=== PATIENT | female | born 1935 | race Caucasian/White ===

== ENCOUNTER 2016-09-11 14:17 | Outpatient (CLI) | payer MEDICARE, OTHER ==
--- NOTE | 2016-09-12 07:50 | RAD ---
FOUR VIEWS OF THE RIGHT KNEE: Date: 09-11-16 Comparison: None. History: Right knee pain, arthritis. FINDINGS: Mild medial and lateral compartment narrowing. No significant knee joint effusion. No fracture or dislocation. IMPRESSION: Mild joint space narrowing with no acute osseous abnormality seen. POS: [facility]
--- NOTE | 2016-09-12 07:50 | RAD ---
AP BILATERAL KNEES: Date: 09/11/16 FINDINGS: AP upright views of both knees obtained. Medial and lateral joint spaces are maintained and appear symmetric. No significant degenerative yazmin nge seen. No fracture or acute abnormality. IMPRESSION: Unremarkable AP weightbearing views of both knees. POS: [facility]
== END 2016-09-11 14:18 | disposition home or self-care (01) ==
LOC: NAV RAD 14:17
PROVIDERS: ATTEND Family Medicine
DX: M17.0 Bilateral primary osteoarthritis of knee (principal)
CPT/HCPCS: 73565

== ENCOUNTER 2016-10-12 08:40 | Outpatient (CLI) | payer MEDICARE, OTHER ==
[2016-10-12 12:45] LABS: #Eosinphils 0.1 thou/uL (0.0-0.7); #Lymphocytes 1.7 thou/uL (1.20-3.40); #Monocytes 0.6 thou/uL (0.11-0.59); #Neutrophils 2.5 thou/uL (1.40-6.50); %Basophils 0.9 % (0.0-1.0); %Eosinophils 2.3 % (0.0-10.0); %Lymphocytes 34.8 % (21.0-51.0); %Monocytes 11.3 % (0.0-10.0); %Neutrophils 50.7 % (42.0-75.0); Hemoglobin 13.6 g/dL (12.0-16.0); Mean Corpuscular HGB CONC 33.5 g/dL (32.0-36.0); Mean Corpuscular Hemoglobin 31.8 pg (27.0-31.0); Mean Corpuscular Volume 95.1 fl (81.0-99.0); Mean Platelet Volume 7.6 fL (7.4-10.4); Platelet Count 286 thou/uL (130-400); RBC Distribution Width 12.5 % (11.5-14.5); Red Blood Cell (RBC) Count 4.27 mill/uL (4.20-5.40); White Blood Cell (WBC) Count 4.9 thou/uL (4.8-10.8)
[2016-10-12 12:51] LABS: Hemoglobin A1c 5.6 % (4.0-6.0)
[2016-10-12 13:09] LABS: ALT (SGPT) 24 U/L (0-55); AST (SGOT) 23 U/L (5-34); Albumin 4.3 g/dL (3.4-4.8); Alkaline Phosphatase 85 U/L (40-150); Anion Gap 16 mmol/L (10-20); BUN (Urea Nitrogen) 25 mg/dL (9.8-20.1); Bilirubin, Total 0.4 mg/dL (0.2-1.2); Calc. Creatinine Clearance 0 mL/min (70-130); Calcium 9.3 mg/dL (7.8-10.44); Carbon Dioxide 26 mmol/L (23-31); Cardiac Risk 2.7 (Less than 4.5); Chloride 102 mmol/L (98-107); Cholesterol 178 mg/dL (< 200 Desired); Estimated GFR-MDRD 73; Globulin 2.3 g/dL (2.4-3.5); Glucose 96 mg/dL (83-110); HDL Cholesterol 67 mg/dL (>60 Neg Risk); LDL Cholesterol, Calculated 97 mg/dL; Potassium 4.6 mmol/L (3.5-5.1); Protein, Total 6.6 g/dL (5.8-8.1); Sodium 139 mmol/L (136-145); Triglycerides 72 mg/dL (Less than 150)
[2016-10-12 13:37] LABS: Bilirubin Negative (Negative); Blood, Urine Negative (Negative); Clarity Clear (Clear); Glucose, Urine (Dipstick) Negative (Negative); Leukocyte Trace (Negative); Nitrite Negative (Negative); Protein, Urine (Dipstick) Negative (Neg-Trace); Specific Gravity, Urine 1.015 (1.005-1.030); Urobilinogen 0.2 mg/dL (0.2-1.0)
[2016-10-12 13:54] LABS: Bacteria/HPF Rare-Few HPF (None Seen); RBC/HPF None Seen HPF (0-3); WBC/HPF 0-3 HPF (0-3)
[2016-10-12 13:55] LABS: Other Microscopic Description NO
== END 2016-10-12 08:41 | disposition home or self-care (01) ==
LOC: NAVSJIPCSP 08:40
PROVIDERS: ATTEND Internal Medicine
DX: Z51.81 Encounter for therapeutic drug level monitoring (principal); Z79.899 Other long term (current) drug therapy
CPT/HCPCS: 36415; 80053; 80061; 81003; 81015; 83036; 84443; 85025

== ENCOUNTER 2017-06-07 11:47 | Emergency (ER) | payer MEDICARE, OTHER ==
[2017-06-07] MEDS ORDERED: cloNIDine 0.1 MG TAB ONE (12:34)
[2017-06-07 12:56] LABS: CKMB 4.1 ng/mL (0-6.6); Troponin I Less than 0.010 ng/mL (< 0.028)
[2017-06-07 13:00] LABS: #Basophils 0.1 thou/uL (0.0-0.2); #Eosinphils 0.1 thou/uL (0.0-0.7); #Lymphocytes 1.5 thou/uL (1.20-3.40); #Monocytes 0.7 thou/uL (0.11-0.59); #Neutrophils 3.9 thou/uL (1.40-6.50); %Basophils 0.9 % (0.0-1.0); %Eosinophils 1.8 % (0.0-10.0); %Lymphocytes 23.9 % (21.0-51.0); %Monocytes 10.5 % (0.0-10.0); %Neutrophils 62.9 % (42.0-75.0); Hemoglobin 12.6 g/dL (12.0-16.0); Mean Corpuscular HGB CONC 32.2 g/dL (32.0-36.0); Mean Corpuscular Hemoglobin 31.2 pg (27.0-31.0); Mean Corpuscular Volume 96.7 fl (81.0-99.0); Mean Platelet Volume 7.9 fL (7.4-10.4); Platelet Count 212 thou/uL (130-400); RBC Distribution Width 12.5 % (11.5-14.5); Red Blood Cell (RBC) Count 4.05 mill/uL (4.20-5.40); White Blood Cell (WBC) Count 6.2 thou/uL (4.8-10.8)
[2017-06-07 13:02] LABS: ALT (SGPT) 32 U/L (8-55); AST (SGOT) 29 U/L (5-34); Albumin 4.1 g/dL (3.4-4.8); Alkaline Phosphatase 99 U/L (40-150); Anion Gap 16 mmol/L (10-20); BUN (Urea Nitrogen) 17 mg/dL (9.8-20.1); Bilirubin, Total 0.4 mg/dL (0.2-1.2); Calc. Creatinine Clearance 0 mL/min (70-130); Carbon Dioxide 21 mmol/L (23-31); Chloride 98 mmol/L (98-107); Estimated GFR-MDRD 74; Globulin 2.5 g/dL (2.4-3.5); Glucose 102 mg/dL (83-110); Potassium 4.2 mmol/L (3.5-5.1); Protein, Total 6.6 g/dL (6.0-8.3); Sodium 131 mmol/L (136-145)
[2017-06-07] MEDS ORDERED: Sodium Chloride 0.9% 1,000 ML ONE (13:08)
--- NOTE | 2017-06-07 14:10 | RAD ---
PA AND LATERAL CHEST: Date: 06/07/17 INDICATION: Hypertension. COMPARISON: None. FINDINGS: There is suspected subsegmental atelectasis of the left lower lobe. No confluent air space opacity se en to suggest the presence of pneumonia. Heart size is within normal limits. No pleural effusion is e vident. No acute osseous abnormality is evident. There is postsurgical mercury recoverer right distal clavi good excision. IMPRESSION: Areas of suspected subsegmental atelectasis of the left lower lobe. Otherwise normal exam. POS: [facility]
== END 2017-06-07 14:37 | disposition home or self-care (01) ==
LOC: NAV ERS 11:47
DX: I10 Essential (primary) hypertension (principal); E87.1 Hypo-osmolality and hyponatremia; Z87.891 Personal history of nicotine dependence
CPT/HCPCS: 36415; 71020; 80053; 82553; 84484; 85025; 93005; J7050

== ENCOUNTER 2017-09-10 10:09 | Outpatient (CLI) | payer MEDICARE, OTHER ==
--- NOTE | 2017-09-10 12:23 | RAD ---
TWO VIEWS CHEST COMPARISON: 06/07/2017 INDICATION: Cough. FINDINGS: There is a stable linear density in the left lower lung zone. Right lung is clear. Cardiac silhouet te is within normal size. There is normal vascular calcification. Stable widening of the right AC joint. IMPRESSION: Left basilar scar is redemonstrated. No additional significant interval change. POS: [facility]
== END 2017-09-10 10:10 | disposition home or self-care (01) ==
LOC: NAV RAD 10:09
PROVIDERS: ATTEND Internal Medicine
DX: R05 Cough (principal); J98.4 Other disorders of lung
CPT/HCPCS: 71046

== ENCOUNTER 2021-07-19 15:54 | Outpatient (CLI) | payer MEDICARE, OTHER | END 2021-07-19 15:55 | disposition home or self-care (01) | LOC: NAV RAD 15:54 | PROVIDERS: ATTEND Nurse Practitioner Family | DX: R06.02 Shortness of breath (principal); I51.7 Cardiomegaly; J90 Pleural effusion, not elsewhere classified | CPT/HCPCS: 71046 ==

== ENCOUNTER 2021-07-22 19:28 | Emergency (ER) | payer MEDICARE, OTHER ==
[~2021-07-22 19:28] MED LIST: Iopamidol 370 76% 100 ML VIAL ONE
[2021-07-22 19:52] LABS: #Lymphocytes 0.9 thou/uL (1.20-3.40); #Monocytes 0.5 thou/uL (0.11-0.59); #Neutrophils 7.3 thou/uL (1.40-6.50); %Basophils 0.3 % (0.0-1.0); %Lymphocytes 10.7 % (21.0-51.0); Hemoglobin 11.5 g/dL (12.0-16.0); Mean Corpuscular HGB CONC 31.5 g/dL (32.0-36.0); Mean Corpuscular Hemoglobin 30.3 pg (27.0-31.0); Mean Platelet Volume 7.4 fL (7.4-10.4); Platelet Count 304 thou/uL (130-400); Red Blood Cell (RBC) Count 3.79 mill/uL (4.20-5.40); White Blood Cell (WBC) Count 8.8 thou/uL (4.8-10.8)
[2021-07-22] MEDS ORDERED: Aspirin Chewable 81 MG TAB ONE (19:52)
[2021-07-22 20:13] LABS: ALT (SGPT) 77 U/L (8-55); AST (SGOT) 43 U/L (5-34); Albumin 4.7 g/dL (3.4-4.8); Alkaline Phosphatase 158 U/L (40-110); Anion Gap 16 mmol/L (10-20); BUN (Urea Nitrogen) 35 mg/dL (9.8-20.1); Bilirubin, Total 0.5 mg/dL (0.2-1.2); Calc. Creatinine Clearance 0 mL/min (70-130); Calcium 9.4 mg/dL (7.8-10.44); Carbon Dioxide 22 mmol/L (23-31); Chloride 103 mmol/L (98-107); Globulin 2.6 g/dL (2.4-3.5); Glucose 141 mg/dL (83-110); Potassium 4.5 mmol/L (3.5-5.1); Protein, Total 7.3 g/dL (5.8-8.1); Sodium 136 mmol/L (136-145)
[2021-07-22] MEDS ORDERED: Furosemide 20 MG/2 ML VIAL ONE (21:35)
[2021-07-22 22:54] LABS: Troponin I 0.011 ng/mL (< 0.028)
== END 2021-07-22 23:16 | disposition home or self-care (01) ==
LOC: NAV ERS 19:28
DX: R07.89 Other chest pain (principal); R79.89 Other specified abnormal findings of blood chemistry; I11.0 Hypertensive heart disease with heart failure; I50.9 Heart failure, unspecified; Z87.891 Personal history of nicotine dependence; Z79.82 Long term (current) use of aspirin; Z79.899 Other long term (current) drug therapy
CPT/HCPCS: 71045; 71275; 80053; 84484; 85025; 85379; 93005; 94760; 96374; J1940; Q9967

== ENCOUNTER 2022-05-22 14:49 | Emergency (ER) | payer MEDICARE, OTHER ==
[2022-05-22] MEDS ORDERED: Sodium Chloride 0.9% 1,000 ML ONE (15:25)
[2022-05-22 15:42] LABS: #Basophils 0.1 thou/uL (0.0-0.2); #Eosinphils 0.1 thou/uL (0.0-0.7); #Lymphocytes 0.7 thou/uL (1.20-3.40); #Monocytes 0.8 thou/uL (0.11-0.59); #Neutrophils 4.9 thou/uL (1.40-6.50); %Basophils 0.9 % (0.0-1.0); %Eosinophils 1.7 % (0.0-10.0); %Lymphocytes 10.7 % (21.0-51.0); %Monocytes 11.6 % (0.0-10.0); Hemoglobin 13.1 g/dL (12.0-16.0); Mean Corpuscular Hemoglobin 31.2 pg (27.0-31.0); Mean Corpuscular Volume 94.5 fl (78.0-98.0); Mean Platelet Volume 7.7 fL (7.4-10.4); Platelet Count 222 10x3/uL (130-400); RBC Distribution Width 13.9 % (11.5-14.5); Red Blood Cell (RBC) Count 4.19 mill/uL (4.20-5.40); White Blood Cell (WBC) Count 6.5 10x3/uL (4.8-10.8)
[2022-05-22 15:44] LABS: Bilirubin Negative (Negative); Blood, Urine Negative (Negative); Clarity Slightly Cloudy (Clear); Glucose, Urine (Dipstick) Negative (Negative); Ketone, Urine Negative (Negative); Leukocyte Small (Negative); Nitrite Negative (Negative); Protein, Urine (Dipstick) Negative (Neg-Trace); Urobilinogen 0.2 mg/dL (Less than 2)
[2022-05-22 15:51] LABS: Bacteria/HPF Rare-Few HPF (None Seen); RBC/HPF 0-3 HPF (0-3); WBC/HPF 0-3 HPF (0-3)
[2022-05-22 15:52] LABS: Renal Epithelial 0-3 HPF (None Seen)
[2022-05-22 16:08] LABS: ALT (SGPT) 16 U/L (8-55); AST (SGOT) 18 U/L (5-34); Albumin 4.7 g/dL (3.4-4.8); Alkaline Phosphatase 119 U/L (40-110); Anion Gap 14 mmol/L (10-20); BUN (Urea Nitrogen) 37 mg/dL (9.8-20.1); Bilirubin, Total 0.3 mg/dL (0.2-1.2); Calc. Creatinine Clearance 0 mL/min (70-130); Calcium 9.4 mg/dL (7.8-10.44); Carbon Dioxide 25 mmol/L (23-31); Chloride 101 mmol/L (98-107); Estimated GFR 62; Globulin 2.4 g/dL (2.4-3.5); Glucose 106 mg/dL (83-110); Potassium 4.4 mmol/L (3.5-5.1); Protein, Total 7.1 g/dL (5.8-8.1); Sodium 136 mmol/L (136-145)
[2022-05-22] MEDS ORDERED: Bisacodyl 10 MG SUPP ONE (17:03)
== END 2022-05-22 17:24 | disposition home or self-care (01) ==
LOC: NAV ERS 14:49
DX: K59.00 Constipation, unspecified (principal); I10 Essential (primary) hypertension; Z79.899 Other long term (current) drug therapy; Z79.82 Long term (current) use of aspirin
CPT/HCPCS: 74022; 80053; 81003; 81015; 82274; 85025; J7050

== ENCOUNTER 2022-05-26 09:06 | Emergency (ER) | payer MEDICARE, OTHER ==
[2022-05-26] MEDS ORDERED: Sodium Chloride 0.9% 1,000 ML ONE (10:25)
[2022-05-26 11:11] LABS: #Basophils 0.1 thou/uL (0.0-0.2); #Lymphocytes 0.4 thou/uL (1.20-3.40); #Monocytes 1.2 thou/uL (0.11-0.59); #Neutrophils 9.8 thou/uL (1.40-6.50); %Basophils 0.7 % (0.0-1.0); %Eosinophils 0.1 % (0.0-10.0); %Lymphocytes 3.7 % (21.0-51.0); %Monocytes 10.5 % (0.0-10.0); %Neutrophils 85.1 % (42.0-75.0); Hemoglobin 11.9 g/dL (12.0-16.0); Mean Corpuscular HGB CONC 32.2 g/dL (32.0-36.0); Mean Corpuscular Hemoglobin 30.5 pg (27.0-31.0); Mean Corpuscular Volume 94.7 fl (78.0-98.0); Mean Platelet Volume 8.8 fL (7.4-10.4); Platelet Count 227 10x3/uL (130-400); RBC Distribution Width 13.8 % (11.5-14.5); Red Blood Cell (RBC) Count 3.89 mill/uL (4.20-5.40); White Blood Cell (WBC) Count 11.5 10x3/uL (4.8-10.8)
[2022-05-26 11:21] LABS: ALT (SGPT) 27 U/L (8-55); AST (SGOT) 33 U/L (5-34); Albumin 4.1 g/dL (3.4-4.8); Alkaline Phosphatase 117 U/L (40-110); Anion Gap 14 mmol/L (10-20); BUN (Urea Nitrogen) 19 mg/dL (9.8-20.1); Bilirubin, Total 0.7 mg/dL (0.2-1.2); Calc. Creatinine Clearance 0 mL/min (70-130); Calcium 9.2 mg/dL (7.8-10.44); Carbon Dioxide 25 mmol/L (23-31); Chloride 96 mmol/L (98-107); Estimated GFR 78; Globulin 2.3 g/dL (2.4-3.5); Glucose 129 mg/dL (83-110); Potassium 4.1 mmol/L (3.5-5.1); Protein, Total 6.4 g/dL (5.8-8.1); Sodium 131 mmol/L (136-145)
[2022-05-26 11:46] LABS: Bilirubin Negative (Negative); Blood, Urine Negative (Negative); Clarity Clear (Clear); Glucose, Urine (Dipstick) Negative (Negative); Ketone, Urine Trace mg/dL (Negative); Leukocyte Negative (Negative); Nitrite Negative (Negative); Protein, Urine (Dipstick) Negative (Neg-Trace); Specific Gravity, Urine 1.015 (1.005-1.030); Urobilinogen 0.2 mg/dL (Less than 2)
[2022-05-26] MEDS ORDERED: metroNIDAZOLE 500 MG TAB ONE (13:43)
[2022-05-26] MEDS ORDERED: Cipro 250 MG TAB ONE (13:43)
== END 2022-05-26 19:17 | disposition short-term general hospital (02) ==
LOC: NAV ERS 09:06
DX: K62.6 Ulcer of anus and rectum (principal); R11.2 Nausea with vomiting, unspecified; I10 Essential (primary) hypertension; Z79.82 Long term (current) use of aspirin; Z79.899 Other long term (current) drug therapy; Z87.891 Personal history of nicotine dependence
CPT/HCPCS: 74177; 80053; 81003; 85025; 87086; 96360; J7050; Q9967

== ENCOUNTER 2022-06-07 08:38 | Outpatient (CLI) | payer MEDICARE, OTHER | END 2022-06-07 08:39 | disposition home or self-care (01) | LOC: NAV CT 08:38 | PROVIDERS: ATTEND Surgery | DX: Z01.812 Encounter for preprocedural laboratory examination (principal); G93.0 Cerebral cysts; R42 Dizziness and giddiness | CPT/HCPCS: 36415; 82565 ==

== ENCOUNTER 2022-06-12 08:08 | Outpatient (CLI) | payer MEDICARE, OTHER ==
[2022-06-12] MEDS ORDERED: Iopamidol 370 76% 100 ML VIAL ONE (09:00)
== END 2022-06-12 08:09 | disposition home or self-care (01) ==
LOC: NAV CT 08:08
PROVIDERS: ATTEND Surgery
DX: R51.9 Headache, unspecified (principal); R42 Dizziness and giddiness; I67.82 Cerebral ischemia
CPT/HCPCS: 70496; 70498; Q9967

== ENCOUNTER 2022-08-02 08:17 | Outpatient (CLI) | payer MEDICARE, OTHER ==
[2022-08-02] MEDS ORDERED: Iopamidol 370 76% 100 ML VIAL ONE (09:00)
== END 2022-08-02 08:18 | disposition home or self-care (01) ==
LOC: NAV CT 08:17
PROVIDERS: ATTEND Internal Medicine
DX: Z01.818 Encounter for other preprocedural examination (principal); K59.09 Other constipation; K62.3 Rectal prolapse; K55.9 Vascular disorder of intestine, unspecified; R19.5 Other fecal abnormalities; K63.89 Other specified diseases of intestine
CPT/HCPCS: 36415; 71275; 74174; 82565; Q9967